=== PATIENT | male | born 1970 | race Caucasian/White ===

== ENCOUNTER 2018-05-25 08:30 | Emergency (ER) | payer MEDICAID ==
[2018-05-25 08:30] VITALS: BMI 27.3
[2018-05-25] MEDS ORDERED: Sodium Chloride 0.9% 1,000 ML IV STA (09:23)
[2018-05-25 09:37] LABS: BASO % 0.5 % (0.0-2.0); EOS % 0.6 % (0.0-4.0); HEMOGLOBIN 16.1 g/dL (12.0-18.0); LYMPH # 0.9 K/uL (1.0-4.3); LYMPH % 11.2 % (20.0-40.0); MEAN CELL VOLUME 87.4 fL (80.0-94.0); MEAN CORPUSCULAR HEMOGLOBIN 29.4 pg (27.0-31.0); MEAN CORPUSCULAR HGB CONC 33.7 g/dL (33.0-37.0); MEAN PLATELET VOLUME 8.1 fL (7.2-11.7); MONO # 0.7 K/uL (0.0-0.8); MONO % 9.7 % (0.0-10.0); RBC 5.46 Mil/uL (4.40-5.90); RED CELL DISTRIBUTION WIDTH 13.7 % (11.5-14.5); WHITE BLOOD COUNT 7.7 K/uL (4.8-10.8)
[2018-05-25] MEDS ORDERED: Sodium Chloride 0.9% 1,000 ML ONE (09:37)
[2018-05-25] MEDS ORDERED: Fluorescein 1 mg Ophthalmic Strip ONE (09:43)
[2018-05-25 09:54] LABS: ALB/GLOB RATIO 1.2 (1.0-2.1); ALBUMIN 4.3 g/dL (3.5-5.0); ALT/SGPT 58 U/L (21-72); AMYLASE 73 U/L (30-110); AST/SGOT 40 U/L (17-59); BLOOD UREA NITROGEN 22 mg/dL (9-20); CALCIUM 8.6 mg/dl (8.6-10.4); GFR NON-AFRICAN AMERICAN > 60; LIPASE 61 U/L (23-300)
--- NOTE | 2018-05-25 09:57 | C.PDOC ---
History Of Present Illness 47 y/o male pt presents to the ER c/o abdominal pain for x4 days. Associated sx includes vomiting and diarrhea. Pt reports he also has left pink eye and his friend told him it was a good idea to make an eye cleansing solution with apple cider vinegar which did not help. Pt also states he has a hx of colon cancer x3 years ago and was treated by [facility], where he received surgery and radiation, but did not went back to have check up in several months. Pt denies fever, chills, nausea, and back pain. Time Seen by Provider: 05/25/18 08:48 Chief Complaint (Nursing): Abdominal Pain History Per: Patient History/Exam Limitations: no limitations Onset/Duration Of Symptoms: Days (x4) Current Symptoms Are (Timing): Still Present Past Medical History Reviewed: Historical Data, Nursing Documentation, Vital Signs Vital Signs: Last Vital Signs Temp 98.8 F 05/25/18 08:35 Pulse 98 H 05/25/18 08:35 Resp 20 05/25/18 08:35 BP 132/89 05/25/18 08:35 Pulse Ox 97 05/25/18 08:35 - Medical History PMH: Seizures Family History: States: Unknown Family Hx - Social History Hx Alcohol Use: Yes Hx Substance Use: No - Immunization History Hx Tetanus Toxoid Vaccination: No Hx Influenza Vaccination: No Hx Pneumococcal Vaccination: No Review Of Systems Except As Marked, All Systems Reviewed And Found Negative. Constitutional: Negative for: Fever, Chills Eyes: Positive for: Other (left pink eye ) Gastrointestinal: Positive for: Vomiting, Abdominal Pain, Diarrhea. Negative for: Nausea Musculoskeletal: Negative for: Back Pain Physical Exam - Physical Exam Appears: Non-toxic, No Acute Distress Skin: Warm, Dry Head: Normacephalic Eye(s): bilateral: PERRL, EOMI, right: Normal Inspection, left: Other (conjuncitival erythema; no uptake on fluroscein exam) Ear(s): Bilateral: Normal Oral Mucosa: Moist Throat: Normal Neck: Normal ROM, Supple Chest: Symmetrical Cardiovascular: Rhythm Regular Respiratory: Normal Breath Sounds, No Rales, No Rhonchi, No Wheezing Gastrointestinal/Abdominal: Soft, Tenderness (slightly tender on lower abdomen ), No Guarding, No Rebound Back: No CVA Tenderness Neurological/Psych: Oriented x3, Normal Speech ED Course And Treatment - Laboratory Results Result Diagrams: 05/25/18 09:34 05/25/18 09:34 Lab Results: Total Bilirubin 0.9 mg/dL (0.2-1.3) 05/25/18 09:34 AST 40 U/L (17-59) 05/25/18 09:34 ALT 58 U/L (21-72) 05/25/18 09:34 Alkaline Phosphatase 71 U/L (38-126) 05/25/18 09:34 Total Protein 7.7 g/dL (6.3-8.3) 05/25/18 09:34 Albumin 4.3 g/dL (3.5-5.0) 05/25/18 09:34 Globulin 3.5 gm/dL (2.2-3.9) 05/25/18 09:34 Albumin/Globulin Ratio 1.2 (1.0-2.1) 05/25/18 09:34 Amylase 73 U/L (30-110) 05/25/18 09:34 Lipase 61 U/L (23-300) 05/25/18 09:34 O2 Sat by Pulse Oximetry: 97 (RA) Pulse Ox Interpretation: Normal - CT Scan/US CT Abdomen/Pelvis Other Rad Studies (CT/US): Radiology Report Reviewed CT/US Interpretation: FINDINGS: LOWER THORAX: Right lower lobe subsegmental atelectasis. Left lower lobe linear scar/atelectasis. LIVER: Partial hepatectomy posterior right hepatic lobe with surgical clips and contour deformity. No mass. No biliary dilatation. GALLBLADDER AND BILE DUCTS: Cholecystectomy. PANCREAS: Unremarkable. No gross lesion or ductal dilatation. SPLEEN: Unremarkable. ADRENALS: Unremarkable. No mass. KIDNEYS AND URETERS: 2 cm low-density mass upper pole left kidney, probable cyst. This measures 12 Hounsfield units. No other renal mass. No calculus or hydronephrosis. VASCULATURE: Unremarkable. No aortic aneurysm. No aortic atherosclerotic calcification or mural plaque present. BOWEL: Status post resection and anasto mosis at rectosigmoid junction. There is mural thickening of the residual rectum. This may be postoperative/post radiation thickening but cannot rule out neoplastic disease. No other abnormal bowel loops are identified. No bowel obstruction. APPENDIX: Appendectomy. PERITONEUM: No ascites or pneumoperitoneum. Probable acquired Bochdalek's hernia on the right side containing fat and hepatic flexure of the colon. LYMPH NODES: Unremarkable. No enlarged lymph nodes. BLADDER: Nondistended. REPRODUCTIVE: Normal prostate. There is some reactive change in the fat about the seminal vesicles possibly post radiation for rectal neoplasm. BONES: No acute fracture. OTHER FINDINGS: None. IMPRESSION: Status post rectosigmoid resection and reanastomosis. Mural thickening of the residual rectum raising suspicion of possible neoplasm versus reactive change. Acquired Bochdalek's hernia status post partial hepatectomy right hepatic lobe. Progress Note: -- blood work. -- IV fluids. After reassessment: -- Ciloxan was ordered. Patient sts still with low abdominal pain, concirned because of prior cancer history. --ordered CT scan. Pending CT scan results. . 1543. Labs and CT reviewed, no clinically singificant abnormalities. Patient to be discharged home, instructed to follow up with opthalmologist and oncologist. Given referrals. Disposition - Disposition Referrals: Rod Park MD [Staff Provider] - Disposition: HOME/ ROUTINE Disposition Time: 15:32 Condition: STABLE Additional Instructions: Follow up with your PMD and Oncologist within 3-4 days. Follow up with [employer] within 1-2 days. Return to ED if feel worse. Prescriptions: Ciprofloxacin 0.3% [Ciloxan 0.3% Ophth SOLN] 1 drop OS Q2 #1 bottle Ciprofloxacin [Cipro] 1 tab PO BID #14 tab metroNIDAZOLE [Flagyl] 500 mg PO Q8 #30 tab Ondansetron ODT [Zofran ODT] 4 mg PO .Q4-6H PRN #20 odt PRN Reason: Nausea/Vomiting Instructions: Conjunctivitis (Pinkeye) (DC), Viral Gastroenteritis, Adult (DC) Forms: [employer] ([employer]) - Clinical Impression Clinical Impression: Conjunctivitis, Gastroenteritis - PA / SENIOR PUBLICATIONS SPECIALIST / Resident Statement / has reviewed & agrees with the documentation as recorded. - Scribe Statement The provider has reviewed the documentation as recorded by the Clarita Moore Do All medical record entries made by the Scribe were at my direction and personally dictated by me. I have reviewed the chart and agree that the record accurately reflects my personal performance of the history, physical exam, medical decision making, and the department course for this patient. I have also personally directed, reviewed, and agree with the discharge instructions and disposition.
[2018-05-25 10:44] LABS: SQUAMOUS EPITHIAL < 1 /hpf (0-5); URINE BILIRUBIN NEGATIVE (NEGATIVE); URINE BLOOD NEGATIVE (NEGATIVE); URINE CLARITY Clear (Clear); URINE COLOR Yellow (YELLOW); URINE GLUCOSE (UA) NORMAL (Normal); URINE LEUKOCYTE ESTERASE 1+ Leu/uL (Negative); URINE PROTEIN NEGATIVE (NEGATIVE); URINE UROBILINOGEN NORMAL mg/dL (0.2-1.0)
[2018-05-25] MEDS ORDERED: Ciprofloxacin 0.3% OPTH SOLN OU STA (11:50)
[2018-05-25] MEDS ORDERED: Iohexol 240 (50 ml) PO STA (12:29)
[2018-05-25] MEDS ORDERED: Iohexol 240 (50 ml) ONE (12:33)
[2018-05-25] MEDS ORDERED: Iodixanol 320 MG/ML 100 ML BOTTLE IV ONE (14:12)
--- NOTE | 2018-05-25 15:19 | CT ---
Date of service: 05/25/2018 PROCEDURE: CT Abdomen and Pelvis with contrast HISTORY: lower abd pain, N/V/D, h/o colon ca COMPARISON: None. TECHNIQUE: Contrast dose: 100 mL Visipaque 320 Radiation dose: Total exam DLP = 1175.61 mGy-cm. This CT exam was performed using one or more of the following dose reduction techniques: Automated exposure control, adjustment of the mA and/or kV according to patient size, and/or use of iterative reconstruction technique. FINDINGS: LOWER THORAX: Right lower lobe subsegmental atelectasis. Left lower lobe linear scar/atelectasis. LIVER: Partial hepatectomy posterior right hepatic lobe with surgical clips and contour deformity. No mass. No biliary dilatation. GALLBLADDER AND BILE DUCTS: Cholecystectomy PANCREAS: Unremarkable. No gross lesion or ductal dilatation. SPLEEN: Unremarkable. ADRENALS: Unremarkable. No mass. KIDNEYS AND URETERS: 2 cm low-density mass upper pole left kidney, probable cyst. This measures 12 Hounsfield units. No other renal mass. No calculus or hydronephrosis. VASCULATURE: Unremarkable. No aortic aneurysm. No aortic atherosclerotic calcification or mural plaque present. BOWEL: Status post resection and anastomosis at rectosigmoid junction. There is mural thickening of the residual rectum. This may be postoperative/post radiation thickening but cannot rule out neoplastic disease. No other abnormal bowel loops are identified. No bowel obstruction. APPENDIX: Appendectomy PERITONEUM: No ascites or pneumoperitoneum. Probable acquired Bochdalek's hernia on the right side containing fat and hepatic flexure of the colon. LYMPH NODES: Unremarkable. No enlarged lymph nodes. BLADDER: Nondistended REPRODUCTIVE: Normal prostate. There is some reactive change in the fat about the seminal vesicles possibly post radiation for rectal neoplasm. BONES: No acute fracture. OTHER FINDINGS: None. IMPRESSION: Status post rectosigmoid resection and reanastomosis. Mural thickening of the residual rectum raising suspicion of possible neoplasm versus reactive change. Acquired Bochdalek's hernia status post partial hepatectomy right hepatic lobe.
[2018-05-25 15:51] VITALS: BP 122/71; PULSE 78; RESP 18; TEMP 98
[2018-05-25 16:54] VITALS: O2SAT 97
== END 2018-05-25 15:51 | disposition home or self-care (01) ==
LOC: C.ER 08:30
DX: K52.9 Noninfective gastroenteritis and colitis, unspecified (principal); H10.9 Unspecified conjunctivitis
CPT/HCPCS: 74177; 80053; 80185; 81001; 82150; 83690; 83735; 85025; 96360; 99285; J7030; Q9966; Q9967